=== PATIENT | male | born 1990 | race Caucasian/White ===

== ENCOUNTER 2016-11-11 09:43 | Emergency (ER) | payer MEDICAID ==
[~2016-11-11] VITALS: Ht 182.9 cm; Wt 93.9 kg
[2016-11-11 09:57] VITALS: BP_SYST 114
[2016-11-11 10:51] VITALS: BP_SYST 119
== END 2016-11-11 10:52 | disposition home or self-care (01) ==
LOC: SED 09:43
DX: S81.812D Laceration without foreign body, left lower leg, subsequent encounter (principal); X58.XXXD Exposure to other specified factors, subsequent encounter
CPT/HCPCS: 99281

== ENCOUNTER 2017-02-04 13:20 | Emergency (ER) | payer MEDICAID ==
[~2017-02-04] VITALS: Ht 182.9 cm; Wt 95.3 kg
[2017-02-04 13:32] VITALS: BP_SYST 137
[2017-02-04 14:35] VITALS: BP_SYST 137
== END 2017-02-04 14:35 | disposition home or self-care (01) ==
LOC: SED 13:20
DX: S90.32XA Contusion of left foot, initial encounter (principal); W22.8XXA Striking against or struck by other objects, initial encounter; Y93.66 Activity, soccer; Y92.322 Soccer field as the place of occurrence of the external cause; Y99.8 Other external cause status
CPT/HCPCS: 99284